=== PATIENT | female | born 1965 | race Caucasian/White ===

== ENCOUNTER 2017-11-07 19:32 | Emergency (ER) | payer OTHER ==
[~2017-11-07] VITALS: Ht 165.1 cm; Wt 88.5 kg
[~2017-11-07 19:32] MED LIST: ALBU90OI; ALBU90OI6 INH; ATEN50; ATOR40TA PO; CARB200ER; CARBATROL PO; CIPR500 PO; Cipro500 MG PO; DULO30 PO; FENO145 PO; FLUSAL1005 INH; FLUSAL2505; HYDACE5 PO; LORA1 PO; METR500 PO; MIRALAX17 GM PO; Norco 5-325 Ta1 EACH PO; ONDA4ODT MM; OXYACE5T PO; PROACE100 PO; Prinivil10 MG PO; RANI150 PO; RIZATRIPTAN5 M1 PO; SALS750 PO; SIMV20; WARF4 PO; WARF5 PO; WARF6; WARF7.5 PO; Zofran Odt4 MG SL
[2017-11-07] MEDS ORDERED: Keflex500 MG PO (21:22)
[2017-11-07] MEDS ORDERED: Bactrim Ds Tab1 EACH PO (21:22)
[2017-11-07] MEDS ORDERED: Norco 5-325 Ta1 EACH PO (21:22)
[2018-07-30] MEDS ORDERED: CYCL10 (11:51)
[2018-07-30] MEDS ORDERED: DICL25ER (11:52)
== END 2017-11-07 21:44 | disposition home or self-care (01) ==
LOC: ER 19:32
DX: L03.115 Cellulitis of right lower limb (principal); G40.909 Epilepsy, unspecified, not intractable, without status epilepticus; J45.909 Unspecified asthma, uncomplicated; E78.00 Pure hypercholesterolemia, unspecified; F32.9 Major depressive disorder, single episode, unspecified; F41.9 Anxiety disorder, unspecified; Z91.013 Allergy to seafood; Z88.6 Allergy status to analgesic agent; Z88.5 Allergy status to narcotic agent; Z88.8 Allergy status to other drugs, medicaments and biological substances; Z79.899 Other long term (current) drug therapy; Z90.710 Acquired absence of both cervix and uterus; Z87.891 Personal history of nicotine dependence
CPT/HCPCS: 99283

== ENCOUNTER 2017-11-24 06:39 | Emergency (ER) | payer OTHER ==
[~2017-11-24] VITALS: Ht 162.6 cm; Wt 86.2 kg
[~2017-11-24 06:39] MED LIST changes: +Bactrim Ds Tab1 EACH PO; +Keflex500 MG PO
[2017-11-24] MEDS ORDERED: Norco 5-325 Ta1 EACH PO (07:41)
[2017-11-24 07:48] LABS: Source, Urine Clean Catch
[2017-11-24 07:58] LABS: Bilirubin, Urine Neg (Neg); Blood, Urine 1+ (Neg); Glucose Qualitative, Urine Neg (Neg); Ketones, Urine Neg (Neg); Leukocyte Esterase, Urine 3+ (Neg); Nitrite, Urine Neg (Neg); Protein, Urine 1+ (Neg); Specific Gravity, Urine 1.025 (1.003-1.022); Urobilinogen, Urine NORM (Normal)
[2017-11-24 08:05] LABS: Appearance, Urine Clear (Clear); Color, Urine Yellow (P-Yellow)
[2017-11-24 08:13] LABS: Bacteria Many /hpf; Red Blood Cells, Urine 0-2 /hpf (0-2); Squamous Epithelial Cells Few /hpf (Few); White Blood Cells, Urine 25-50 /hpf (0-5)
[2018-07-30] MEDS ORDERED: CYCL10 (11:51)
[2018-07-30] MEDS ORDERED: DICL25ER (11:52)
== END 2017-11-24 07:58 | disposition home or self-care (01) ==
LOC: ER 06:39
PROVIDERS: Emergency Medicine
DX: N39.0 Urinary tract infection, site not specified (principal); J45.909 Unspecified asthma, uncomplicated; E78.00 Pure hypercholesterolemia, unspecified; G40.909 Epilepsy, unspecified, not intractable, without status epilepticus; F32.9 Major depressive disorder, single episode, unspecified; F41.9 Anxiety disorder, unspecified; Z91.013 Allergy to seafood; Z88.5 Allergy status to narcotic agent; Z88.6 Allergy status to analgesic agent; Z88.8 Allergy status to other drugs, medicaments and biological substances; Z79.899 Other long term (current) drug therapy; Z90.710 Acquired absence of both cervix and uterus; Z87.891 Personal history of nicotine dependence
CPT/HCPCS: 81001; 87086; 99283

== ENCOUNTER 2018-02-02 15:43 | Emergency (ER) | payer OTHER ==
[~2018-02-02] VITALS: Ht 162.6 cm; Wt 90.7 kg
[2018-02-02] MEDS ORDERED: CYCL10 PO (17:07)
== END 2018-02-02 17:17 | disposition home or self-care (01) ==
LOC: ER 15:43
DX: M25.512 Pain in left shoulder (principal); Z88.8 Allergy status to other drugs, medicaments and biological substances; Z88.5 Allergy status to narcotic agent; Z79.899 Other long term (current) drug therapy; I10 Essential (primary) hypertension; G40.909 Epilepsy, unspecified, not intractable, without status epilepticus; Z87.891 Personal history of nicotine dependence
CPT/HCPCS: 96372; 99283; J1885

== ENCOUNTER 2018-07-02 03:26 | Emergency (ER) | payer OTHER ==
[~2018-07-02] VITALS: Ht 162.6 cm; Wt 95.7 kg
[~2018-07-02 03:26] MED LIST changes: +CYCL10 PO
[2018-07-02] MEDS ORDERED: CBD OIL (05:13)
[2018-07-02] MEDS ORDERED: Stool Softener100 MG PO (05:13)
[2018-07-02] MEDS ORDERED: METPRE4 PO (05:13)
[2018-07-02] MEDS ORDERED: Percocet 10-321 EACH PO (07:44)
[2018-07-02] MEDS ORDERED: LIDO700A20 TOP (07:44)
== END 2018-07-02 07:55 | disposition home or self-care (01) ==
LOC: ER 03:26
DX: M54.5 Low back pain (principal); G89.29 Other chronic pain; I10 Essential (primary) hypertension; G43.909 Migraine, unspecified, not intractable, without status migrainosus; Z91.013 Allergy to seafood; Z88.6 Allergy status to analgesic agent; Z88.5 Allergy status to narcotic agent; Z88.8 Allergy status to other drugs, medicaments and biological substances; Z79.899 Other long term (current) drug therapy; Z87.891 Personal history of nicotine dependence
CPT/HCPCS: 72080; 99283-25; J1100

== ENCOUNTER → 2018-07-12 | Outpatient (CLI) | payer OTHER ==
[~2018-07-12] MED LIST changes: +ALBU90OI61 INH; +CBD OIL; +DICL25ER PO; +LIDO700A20 TOP; +METPRE4 PO; +Percocet 10-321 EACH PO; +Stool Softener100 MG PO
[2018-07-12 13:06] LABS: Source, Urine Clean Catch
[2018-07-12 14:27] LABS: Appearance, Urine Clear (Clear); Bilirubin, Urine Neg (Neg); Blood, Urine Neg (Neg); Color, Urine Yellow (P-Yellow); Glucose Qualitative, Urine Neg (Neg); Ketones, Urine Neg (Neg); Leukocyte Esterase, Urine 2+ (Neg); Nitrite, Urine Neg (Neg); Protein, Urine Neg (Neg); Urobilinogen, Urine NORM (Normal); pH, Urine 6.5 (5.0-8.0)
[2018-07-12 14:47] LABS: Bacteria Mod /hpf; Red Blood Cells, Urine 0-2 /hpf (0-2); Squamous Epithelial Cells Few /hpf (Few)
== END ==
LOC: LAB SHORT 13:02 → LAB 13:02
PROVIDERS: Family Medicine
DX: R35.0 Frequency of micturition (principal); M54.6 Pain in thoracic spine
CPT/HCPCS: 81001; 87086

== ENCOUNTER 2018-07-18 20:51 | Inpatient (IN) | payer OTHER ==
[~2018-07-18] VITALS: Ht 162.6 cm; Wt 98.0 kg
[~2018-07-18 20:51] MED LIST changes: -ALBU90OI61 INH; -DICL25ER PO
[2018-07-18 21:28] LABS: BASOPHILS ABSOLUTE AUTO 0.05 K/mm3 (0.00-0.23); BASOPHILS PERCENT AUTO 1 % (0-2); EOSINOPHILS ABSOLUTE AUTO 0.04 K/mm3 (0.00-0.68); EOSINOPHILS PERCENT AUTO 0 % (0-6); Hematocrit 41.7 % (33.0-51.0); Hemoglobin 13.8 g/dL (11.5-16.0); IMMATURE GRAN ABSOLUTE AUTO 0.04 K/mm3 (0.00-0.10); IMMATURE GRAN PERCENT AUTO 0 % (0-1); LYMPHOCYTES ABSOLUTE AUTO 1.45 K/mm3 (0.84-5.20); LYMPHOCYTES PERCENT AUTO 15 % (21-46); MONOCYTES ABSOLUTE AUTO 0.66 K/mm3 (0.16-1.47); MONOCYTES PERCENT AUTO 7 % (4-13); Mean Corpuscular HGB 29.9 pg (26.0-34.0); Mean Corpuscular HGB Conc 33.1 g/dL (31.5-36.5); Mean Corpuscular Volume 91 fL (80-100); Mean Platelet Volume 10.2 fL (9.1-12.4); NEUTROPHILS ABSOLUTE AUTO 7.79 K/mm3 (1.96-9.15); NEUTROPHILS PERCENT AUTO 78 % (41-73); Platelet Count 283 K/mm3 (150-400); RDW Coefficient Variation 13.7 % (11.7-14.2); RDW Standard Deviation 45.5 fL (35.1-46.3); Red Blood Cell Count 4.61 M/mm3 (3.80-5.20); White Blood Cell Count 10.03 K/mm3 (4.00-11.30)
[2018-07-18 21:41] LABS: Alanine Aminotransfer (ALT/SGP 35 U/L (12-78); Albumin, Blood 3.7 g/dL (3.4-5.0); Albumin/Globulin Ratio 0.9 (0.8-1.8); Alk Phos 133 U/L (50-136); Anion Gap 8 mmol/L (6-16); Aspartate Aminotrans (AST/SGOT 23 U/L (12-37); Bilirubin, Total 0.3 mg/dL (0.1-1.0); Blood Urea Nitrogen 15 mg/dL (8-24); Bun/Creatinine Ratio 18.3 (12.0-20.0); CO2, Blood 27 mmol/L (21-32); Calcium, Blood 8.6 mg/dL (8.5-10.1); Chloride, Blood 105 mmol/L (98-108); Creatinine, Blood 0.82 mg/dL (0.40-1.00); Globulin, Blood 4.3 g/dL (2.2-4.0); Glomerular Filtration Rate >60 (60-); Glucose, Blood 103 mg/dL (70-99); Potassium, Blood 4.1 mmol/L (3.5-5.5); Sodium, Blood 140 mmol/L (136-145)
[2018-07-19] MEDS ORDERED: ALBU90OI61 INH (00:27)
[2018-07-19] MEDS ORDERED: DICL25ER PO (00:28)
[2018-07-19 04:31] LABS: Hematocrit 38.9 % (33.0-51.0); Hemoglobin 12.6 g/dL (11.5-16.0); Mean Corpuscular HGB Conc 32.4 g/dL (31.5-36.5); Mean Corpuscular Volume 89 fL (80-100); Mean Platelet Volume 10.2 fL (9.1-12.4); Platelet Count 258 K/mm3 (150-400); RDW Coefficient Variation 13.7 % (11.7-14.2); RDW Standard Deviation 45.1 fL (35.1-46.3); Red Blood Cell Count 4.35 M/mm3 (3.80-5.20); White Blood Cell Count 11.52 K/mm3 (4.00-11.30)
[2018-07-19 04:55] LABS: Alanine Aminotransfer (ALT/SGP 31 U/L (12-78); Albumin, Blood 3.3 g/dL (3.4-5.0); Albumin/Globulin Ratio 0.9 (0.8-1.8); Alk Phos 108 U/L (50-136); Anion Gap 7 mmol/L (6-16); Aspartate Aminotrans (AST/SGOT 18 U/L (12-37); Bilirubin, Total 0.3 mg/dL (0.1-1.0); Blood Urea Nitrogen 12 mg/dL (8-24); Bun/Creatinine Ratio 15.7 (12.0-20.0); CO2, Blood 27 mmol/L (21-32); Calcium, Blood 8.1 mg/dL (8.5-10.1); Chloride, Blood 106 mmol/L (98-108); Creatinine, Blood 0.76 mg/dL (0.40-1.00); Globulin, Blood 3.7 g/dL (2.2-4.0); Glomerular Filtration Rate >60 (60-); Glucose, Blood 100 mg/dL (70-99); Potassium, Blood 4.2 mmol/L (3.5-5.5); Sodium, Blood 140 mmol/L (136-145)
[2018-07-19 13:21] LABS: Adenovirus F 40/41 Not Detected (NOT DETECT); Astrovirus Not Detected (NOT DETECT); Campylobacter Sp Not Detected (NOT DETECT); Cryptosporidium Not Detected (NOT DETECT); Cyclospora Cayetanensis Not Detected (NOT DETECT); E. Coli O157 Not Detected (NOT DETECT); Entamoeba Histolytica Not Detected (NOT DETECT); Enteroaggregative E. coli-EAEC Not Detected (NOT DETECT); Enteropathogenic E. coli-EPEC Not Detected (NOT DETECT); Enterotoxigenic E. coli-ETEC Not Detected (NOT DETECT); Giardia Lamblia Not Detected (NOT DETECT); Norovirus GI/GII Not Detected (NOT DETECT); Plesiomonas Shigelloides Not Detected (NOT DETECT); Rotavirus A Not Detected (NOT DETECT); Salmonella Sp Not Detected (NOT DETECT); Sapovirus Not Detected (NOT DETECT); Shiga Toxin-prod E. coli-STEC Not Detected (NOT DETECT); Shigella/Enteroin E. coli-EIEC Not Detected (NOT DETECT); Vibrio Cholerae Not Detected (NOT DETECT); Vibrio Sp Not Detected (NOT DETECT); Yersinia Enterocolitica Not Detected (NOT DETECT)
[2018-07-19 15:11] LABS: Source, Urine Clean Catch
[2018-07-19 15:18] LABS: Appearance, Urine Clear (Clear); Bilirubin, Urine Neg (Neg); Blood, Urine Neg (Neg); Color, Urine Yellow (P-Yellow); Glucose Qualitative, Urine Neg (Neg); Ketones, Urine Neg (Neg); Leukocyte Esterase, Urine Neg (Neg); Nitrite, Urine Neg (Neg); Protein, Urine Neg (Neg); Specific Gravity, Urine 1.015 (1.003-1.022); Urobilinogen, Urine NORM (Normal)
[2018-07-20 05:12] LABS: BASOPHILS ABSOLUTE AUTO 0.04 K/mm3 (0.00-0.23); BASOPHILS PERCENT AUTO 1 % (0-2); EOSINOPHILS ABSOLUTE AUTO 0.07 K/mm3 (0.00-0.68); EOSINOPHILS PERCENT AUTO 1 % (0-6); Hematocrit 36.4 % (33.0-51.0); IMMATURE GRAN ABSOLUTE AUTO 0.01 K/mm3 (0.00-0.10); IMMATURE GRAN PERCENT AUTO 0 % (0-1); LYMPHOCYTES ABSOLUTE AUTO 2.06 K/mm3 (0.84-5.20); LYMPHOCYTES PERCENT AUTO 26 % (21-46); MONOCYTES ABSOLUTE AUTO 0.63 K/mm3 (0.16-1.47); MONOCYTES PERCENT AUTO 8 % (4-13); Mean Corpuscular HGB 29.9 pg (26.0-34.0); Mean Corpuscular Volume 91 fL (80-100); NEUTROPHILS ABSOLUTE AUTO 5.12 K/mm3 (1.96-9.15); NEUTROPHILS PERCENT AUTO 65 % (41-73); Platelet Count 245 K/mm3 (150-400); RDW Coefficient Variation 13.7 % (11.7-14.2); RDW Standard Deviation 46.5 fL (35.1-46.3); Red Blood Cell Count 4.01 M/mm3 (3.80-5.20); White Blood Cell Count 7.93 K/mm3 (4.00-11.30)
[2018-07-20 05:37] LABS: Anion Gap 8 mmol/L (6-16); Blood Urea Nitrogen 11 mg/dL (8-24); Bun/Creatinine Ratio 13.8 (12.0-20.0); CO2, Blood 28 mmol/L (21-32); Calcium, Blood 8.2 mg/dL (8.5-10.1); Chloride, Blood 107 mmol/L (98-108); Glomerular Filtration Rate >60 (60-); Glucose, Blood 98 mg/dL (70-99); Potassium, Blood 3.6 mmol/L (3.5-5.5); Sodium, Blood 143 mmol/L (136-145)
[2018-07-21 05:49] LABS: BASOPHILS ABSOLUTE AUTO 0.07 K/mm3 (0.00-0.23); BASOPHILS PERCENT AUTO 1 % (0-2); EOSINOPHILS ABSOLUTE AUTO 0.16 K/mm3 (0.00-0.68); EOSINOPHILS PERCENT AUTO 2 % (0-6); Hematocrit 37.3 % (33.0-51.0); Hemoglobin 12.2 g/dL (11.5-16.0); IMMATURE GRAN ABSOLUTE AUTO 0.02 K/mm3 (0.00-0.10); IMMATURE GRAN PERCENT AUTO 0 % (0-1); LYMPHOCYTES ABSOLUTE AUTO 2.41 K/mm3 (0.84-5.20); LYMPHOCYTES PERCENT AUTO 31 % (21-46); MONOCYTES ABSOLUTE AUTO 0.77 K/mm3 (0.16-1.47); MONOCYTES PERCENT AUTO 10 % (4-13); Mean Corpuscular HGB 29.3 pg (26.0-34.0); Mean Corpuscular HGB Conc 32.7 g/dL (31.5-36.5); Mean Corpuscular Volume 90 fL (80-100); Mean Platelet Volume 10.6 fL (9.1-12.4); NEUTROPHILS ABSOLUTE AUTO 4.45 K/mm3 (1.96-9.15); NEUTROPHILS PERCENT AUTO 56 % (41-73); Platelet Count 239 K/mm3 (150-400); RDW Coefficient Variation 13.6 % (11.7-14.2); RDW Standard Deviation 44.9 fL (35.1-46.3); Red Blood Cell Count 4.16 M/mm3 (3.80-5.20); White Blood Cell Count 7.88 K/mm3 (4.00-11.30)
[2018-07-22 04:11] LABS: BASOPHILS ABSOLUTE AUTO 0.06 K/mm3 (0.00-0.23); BASOPHILS PERCENT AUTO 1 % (0-2); EOSINOPHILS ABSOLUTE AUTO 0.13 K/mm3 (0.00-0.68); EOSINOPHILS PERCENT AUTO 2 % (0-6); Hematocrit 38.9 % (33.0-51.0); Hemoglobin 12.7 g/dL (11.5-16.0); IMMATURE GRAN ABSOLUTE AUTO 0.01 K/mm3 (0.00-0.10); IMMATURE GRAN PERCENT AUTO 0 % (0-1); LYMPHOCYTES ABSOLUTE AUTO 2.32 K/mm3 (0.84-5.20); LYMPHOCYTES PERCENT AUTO 36 % (21-46); MONOCYTES ABSOLUTE AUTO 0.56 K/mm3 (0.16-1.47); MONOCYTES PERCENT AUTO 9 % (4-13); Mean Corpuscular HGB 29.2 pg (26.0-34.0); Mean Corpuscular HGB Conc 32.6 g/dL (31.5-36.5); Mean Corpuscular Volume 89 fL (80-100); Mean Platelet Volume 10.5 fL (9.1-12.4); NEUTROPHILS ABSOLUTE AUTO 3.42 K/mm3 (1.96-9.15); NEUTROPHILS PERCENT AUTO 53 % (41-73); Platelet Count 242 K/mm3 (150-400); RDW Coefficient Variation 13.6 % (11.7-14.2); RDW Standard Deviation 44.6 fL (35.1-46.3); Red Blood Cell Count 4.35 M/mm3 (3.80-5.20)
[2018-07-23] MEDS ORDERED: ACET325 PO (11:06)
[2018-07-23] MEDS ORDERED: CIPR500 PO (11:07)
[2018-07-23] MEDS ORDERED: GAVILAX17 GM PO (11:07)
[2018-07-23] MEDS ORDERED: Acidophilus1 EAC2 PO (11:09)
[2018-07-23] MEDS ORDERED: HYDR1TAB94 PO (11:09)
[2018-07-23] MEDS ORDERED: METR500 PO (11:10)
== END 2018-07-23 13:15 | disposition home or self-care (01) | DRG 386 ==
LOC: ER 20:51 → MEDS 20:52 → ENPENDDIS 07-23 09:47 → MEDS 07-23 13:15
PROVIDERS: Emergency Medicine; Internal Medicine; Internal Medicine Gastroenterology
PROC: 0DBE8ZX Excision of Large Intestine, Via Natural or Artificial Opening Endoscopic, Diagnostic (ICD-10-PCS; principal; 2018-07-20 09:00)
DX: K51.50 Left sided colitis without complications (principal); K55.9 Vascular disorder of intestine, unspecified; Z68.36 Body mass index [BMI] 36.0-36.9, adult; E66.9 Obesity, unspecified; M79.7 Fibromyalgia; Z90.49 Acquired absence of other specified parts of digestive tract; K64.8 Other hemorrhoids; E78.5 Hyperlipidemia, unspecified
CPT/HCPCS: 36415; 74176; 80048; 80053; 81003; 82272; 83690; 85025; 85027; 87507; 88305; 94640; 94760; 96361; 96365; 96375; 99285-25; J0744; J0780; J1170; J2405; J3010; J7030; J7120

== ENCOUNTER 2018-11-16 22:41 | Emergency (ER) | payer OTHER ==
[~2018-11-16] VITALS: Ht 162.6 cm; Wt 95.7 kg
[~2018-11-16 22:41] MED LIST changes: +ACET325 PO; +ALBU90OI61 INH; +Acidophilus1 EAC2 PO; +CYCL10; +DICL25ER; +DICL25ER PO; +GAVILAX17 GM PO; +HYDR1TAB94 PO; -RANI150 PO; +Zantac150 MG PO
[2018-11-16] MEDS ORDERED: RIZATRIPTAN5 MG PO (23:09)
[2018-11-16] MEDS ORDERED: DULOXETINE HCL40 MG PO (23:09)
[2018-11-16] MEDS ORDERED: Cyclobenzaprine5 MG PO (23:12)
[2018-11-16] MEDS ORDERED: PROM25 PO (23:12)
[2018-11-16] MEDS ORDERED: AMIT25 PO (23:13)
[2018-11-16] MEDS ORDERED: BENZ100A PO (23:30)
[2018-11-16] MEDS ORDERED: Prednisone20 MG PO (23:30)
[2018-12-28] MEDS ORDERED: (None)20 M1 PO (18:12)
== END 2018-11-16 23:41 | disposition home or self-care (01) ==
LOC: ER 22:41
DX: R06.2 Wheezing (principal); M79.10 Myalgia, unspecified site; Z88.5 Allergy status to narcotic agent; Z88.8 Allergy status to other drugs, medicaments and biological substances; Z79.899 Other long term (current) drug therapy; I10 Essential (primary) hypertension; G40.909 Epilepsy, unspecified, not intractable, without status epilepticus; Z87.891 Personal history of nicotine dependence
CPT/HCPCS: 71046; 94640; 99283-25

== ENCOUNTER → 2019-09-04 | Outpatient (CLI) | payer OTHER ==
[~2019-09-04] MED LIST changes: +(None)20 M1 PO; +AMIT25 PO; +BENZ100A PO; +Cyclobenzaprine5 MG PO; +DULOXETINE HCL40 MG PO; +PROM25 PO; +Prednisone20 MG PO; +RIZATRIPTAN5 MG PO
== END | disposition home or self-care (01) ==
LOC: LAB EV 12:25 → LAB SHORT 12:25
DX: N39.0 Urinary tract infection, site not specified (principal)
CPT/HCPCS: 87086

== ENCOUNTER 2019-09-18 11:32 | Day surgery (SDC) | payer OTHER ==
[~2019-09-18] VITALS: Ht 162.6 cm; Wt 100.5 kg
[~2019-09-18 11:32] MED LIST changes: +AMIT50 PO; +LOSA50 PO
--- NOTE | 2019-09-18 13:02 | NUR ---
09/18/19 1302 Alona Iraheta 1 IV MISS IN RH BY YAMINI 1 IV MISS IN RW BY YAMINI 1 GOOD IV IN RFA BY RN PT TOW
== END 2019-09-18 14:36 | disposition home or self-care (01) ==
LOC: ORSCSDS 11:32
PROVIDERS: Internal Medicine Gastroenterology
PROC: 0DBM8ZX Excision of Descending Colon, Via Natural or Artificial Opening Endoscopic, Diagnostic (ICD-10-PCS; principal; 2019-09-18 12:45)
PROC: 0DJ08ZZ Inspection of Upper Intestinal Tract, Via Natural or Artificial Opening Endoscopic (ICD-10-PCS; principal; 2019-09-18 12:45)
PROC: 0DBL8ZX Excision of Transverse Colon, Via Natural or Artificial Opening Endoscopic, Diagnostic (ICD-10-PCS; principal; 2019-09-18 12:45)
DX: K62.5 Hemorrhage of anus and rectum (principal); D12.3 Benign neoplasm of transverse colon; K63.5 Polyp of colon; K64.8 Other hemorrhoids; R10.32 Left lower quadrant pain; R12 Heartburn; F17.210 Nicotine dependence, cigarettes, uncomplicated; Z86.010 Personal history of colon polyps; G47.33 Obstructive sleep apnea (adult) (pediatric); M79.7 Fibromyalgia; L93.0 Discoid lupus erythematosus; F31.81 Bipolar II disorder; F43.12 Post-traumatic stress disorder, chronic; Z79.899 Other long term (current) drug therapy
CPT/HCPCS: 88305; J2250; J2704; J7120

== ENCOUNTER 2020-04-23 09:18 | Day surgery (SDC) | payer OTHER ==
[~2020-04-23] VITALS: Ht 165.1 cm; Wt 96.9 kg
--- NOTE | 2020-04-23 10:30 | NUR ---
04/23/20 1030 ValentinLili Evens WHEN ASKED PT IF SHE HAD ANY PAIN, PT. STATED "NORMAL PAIN." PER PT. SHE HAS LUPUS & FIBROMYALGIA RATES HER PAIN "4-5". PT. ALSO VERBALIZED THAT SHE FELT SOB, STATES "THROAT FEELS TIGHT." PT. HAS ASTHMA/COPD. PT. DIDN'T USE HER INHALER TODAY. DR. FERNANDO NOTIFIED OF THROAT FEELING TIGHT & ASTHMA/COPD, ORDER GIVEN FOR DUO NEB. PT. VERBALIZES DUO NEB IS HELPING HER THROAT NOT FEEL SO TIGHT.
--- NOTE | 2020-04-23 11:41 | NUR ---
04/23/20 1141 Lili Hanson PT. VERBALIZES NO PAIN OR SORE THROAT FROM THE PROCEDURE. PT. JUST HAS HER "NORMAL PAIN" THAT SHE CAME IN WITH.
== END 2020-04-23 11:54 | disposition home or self-care (01) ==
LOC: ORSCSDS 09:18
PROVIDERS: Internal Medicine Gastroenterology
PROC: 0DJ08ZZ Inspection of Upper Intestinal Tract, Via Natural or Artificial Opening Endoscopic (ICD-10-PCS; principal; 2020-04-23 11:00)
DX: K22.8 Other specified diseases of esophagus (principal); I10 Essential (primary) hypertension; G47.33 Obstructive sleep apnea (adult) (pediatric); K21.9 Gastro-esophageal reflux disease without esophagitis; J45.909 Unspecified asthma, uncomplicated; F31.9 Bipolar disorder, unspecified; Z87.891 Personal history of nicotine dependence; E66.01 Morbid (severe) obesity due to excess calories; Z68.37 Body mass index [BMI] 37.0-37.9, adult; Z79.899 Other long term (current) drug therapy
CPT/HCPCS: J2001; J2250; J2704; J7120

== ENCOUNTER → 2021-10-11 | Outpatient (CLI) | payer OTHER ==
[2021-10-12 15:30] LABS: CORONAVIRUS (COVID19) CSH-NRL Positive (Negative)
== END | disposition home or self-care (01) ==
LOC: LAB 10:36 → LAB SHORT 10:36
PROVIDERS: Physician Assistant Medical
DX: U07.1 COVID-19 (principal)
CPT/HCPCS: U0003

== ENCOUNTER → 2022-03-22 | Outpatient (CLI) | payer OTHER ==
[2022-03-22 15:05] LABS: BASOPHILS ABSOLUTE AUTO 0.05 K/mm3 (0.00-0.23); BASOPHILS PERCENT AUTO 1 % (0-2); EOSINOPHILS ABSOLUTE AUTO 0.07 K/mm3 (0.00-0.68); EOSINOPHILS PERCENT AUTO 1 % (0-6); Hematocrit 44.4 % (33.0-51.0); Hemoglobin 14.7 g/dL (11.5-16.0); IMMATURE GRAN ABSOLUTE AUTO 0.01 K/mm3 (0.00-0.10); IMMATURE GRAN PERCENT AUTO 0 % (0-1); LYMPHOCYTES ABSOLUTE AUTO 2.73 K/mm3 (0.84-5.20); LYMPHOCYTES PERCENT AUTO 38 % (21-46); MONOCYTES ABSOLUTE AUTO 0.49 K/mm3 (0.16-1.47); MONOCYTES PERCENT AUTO 7 % (4-13); Mean Corpuscular HGB 29.6 pg (26.0-34.0); Mean Corpuscular HGB Conc 33.1 g/dL (31.5-36.5); Mean Corpuscular Volume 90 fL (80-100); Mean Platelet Volume 10.3 fL (9.1-12.4); NEUTROPHILS ABSOLUTE AUTO 3.87 K/mm3 (1.96-9.15); NEUTROPHILS PERCENT AUTO 54 % (41-73); Platelet Count 264 K/mm3 (150-400); RDW Standard Deviation 45.1 fL (35.1-46.3); Red Blood Cell Count 4.96 M/mm3 (3.80-5.20); White Blood Cell Count 7.22 K/mm3 (4.00-11.30)
[2022-03-22 15:20] LABS: Bun/Creatinine Ratio 14.6 (12.0-20.0); Calcium, Blood 8.8 mg/dL (8.5-10.1); Creatinine, Blood 0.89 mg/dL (0.40-1.00); Potassium, Blood 4.2 mmol/L (3.5-5.5)
== END | disposition home or self-care (01) ==
LOC: LAB SHORT 14:58 → LAB 14:58
PROVIDERS: Physician Assistant Surgical
DX: R10.9 Unspecified abdominal pain (principal)
CPT/HCPCS: 80048; 85025

== ENCOUNTER 2022-11-05 06:52 | Emergency (ER) | payer OTHER ==
[~2022-11-05] VITALS: Ht 165.1 cm; Wt 93.0 kg
[~2022-11-05 06:52] MED LIST changes: +HYDHCL25 PO; +Hydrocortiso453.6 G3 TOP; +MENTHOL-CAMPHO120 GM TOP
[2022-11-05] MEDS ORDERED: CODEINE-GUAIFE120 M1 PO (08:15)
[2022-11-05] MEDS ORDERED: Tessalon200 MG PO (08:15)
== END 2022-11-05 09:04 | disposition home or self-care (01) ==
LOC: ER 06:52
DX: R05.1 Acute cough (principal); I10 Essential (primary) hypertension; M79.7 Fibromyalgia; G40.909 Epilepsy, unspecified, not intractable, without status epilepticus; Z91.013 Allergy to seafood; Z88.6 Allergy status to analgesic agent; Z88.5 Allergy status to narcotic agent; Z88.8 Allergy status to other drugs, medicaments and biological substances; Z79.899 Other long term (current) drug therapy; Z87.891 Personal history of nicotine dependence
CPT/HCPCS: 71046; A9270

== ENCOUNTER 2022-12-06 10:21 | Day surgery (SDC) | payer OTHER ==
[~2022-12-06] VITALS: Ht 165.1 cm; Wt 93.6 kg
[~2022-12-06 10:21] MED LIST changes: +CODEINE-GUAIFE120 M1 PO; +Tessalon200 MG PO
[2022-12-06] MEDS ORDERED: ATEN25 (10:47)
[2022-12-06] MEDS ORDERED: FAMO20 (10:47)
[2022-12-06] MEDS ORDERED: RIZATRIPTAN10 MG (10:47)
[2022-12-06] MEDS ORDERED: Cyclobenzaprine5 MG (10:47)
--- NOTE | 2022-12-06 13:11 | NUR ---
12/06/22 1311 HORACE HUERTA KEPT PT IN RECOVERY ADDITIONAL TIME DUE TO BEING SLOW TO RECOVER. PT HAD MAC SEDATION INCLUDING PROPOFOL, KETAMINE AND SRIRAM AGUILAR/ DR WHITLOCK. DAUGHTER IS A NURSE AT THE [employer] AND WILL BE WITH PATIENT FOR A FEW HOURS AT HOME. PT WILL HAVE STAND BY ASSIST WHEN UP FOR THE FIRST 3-4 HOURS AT HOME. PT AND DAUGHTER AGREED.
== END 2022-12-06 13:12 | disposition home or self-care (01) ==
LOC: ORSCSDS 10:21
PROVIDERS: Internal Medicine Gastroenterology
PROC: 0DBP8ZX Excision of Rectum, Via Natural or Artificial Opening Endoscopic, Diagnostic (ICD-10-PCS; principal; 2022-12-06 11:45)
PROC: 0D757ZZ Dilation of Esophagus, Via Natural or Artificial Opening (ICD-10-PCS; principal; 2022-12-06 11:45)
PROC: 0DBN8ZX Excision of Sigmoid Colon, Via Natural or Artificial Opening Endoscopic, Diagnostic (ICD-10-PCS; principal; 2022-12-06 11:45)
PROC: 0DJ08ZZ Inspection of Upper Intestinal Tract, Via Natural or Artificial Opening Endoscopic (ICD-10-PCS; principal; 2022-12-06 11:45)
DX: Z12.11 Encounter for screening for malignant neoplasm of colon (principal); Z85.038 Personal history of other malignant neoplasm of large intestine; Z86.010 Personal history of colon polyps; R13.10 Dysphagia, unspecified; K63.5 Polyp of colon; K62.1 Rectal polyp; F17.210 Nicotine dependence, cigarettes, uncomplicated; G47.33 Obstructive sleep apnea (adult) (pediatric); E78.5 Hyperlipidemia, unspecified; K21.9 Gastro-esophageal reflux disease without esophagitis; G40.909 Epilepsy, unspecified, not intractable, without status epilepticus; Z79.899 Other long term (current) drug therapy
CPT/HCPCS: 88305; A9270; J2250; J2704; J7120

== ENCOUNTER → 2023-07-13 | Outpatient (CLI) | payer OTHER ==
[~2023-07-13] MED LIST changes: +ATEN25; +Cyclobenzaprine5 MG; +FAMO20; +RIZATRIPTAN10 MG
[2023-07-14 12:09] LABS: Candida species (DNA Probe) Negative (NEGATIVE); G. vaginalis (DNA Probe) Positive (NEGATIVE); T. vaginalis (DNA Probe) Negative (NEGATIVE)
[2023-07-16 05:09] LABS: HIV AB/P24 AG SCREEN Non Reactive (Non Reactive)
[2023-07-17 11:12] LABS: HSV-1 DNA Negative (Negative); HSV-2 DNA Negative (Negative)
== END ==
LOC: LAB 12:46 → LAB SHORT 12:46
PROVIDERS: Student in an Organized Health Care Education/Training Program
DX: Z11.4 Encounter for screening for human immunodeficiency virus [HIV] (principal); R30.0 Dysuria; Z72.51 High risk heterosexual behavior
CPT/HCPCS: 86592; 87086; 87389; 87480; 87510; 87529; 87660

== ENCOUNTER → 2023-11-15 | Outpatient (CLI) | payer OTHER | END | disposition home or self-care (01) | LOC: LAB SHORT 13:49 → LAB 13:49 | DX: L60.2 Onychogryphosis (principal); B35.1 Tinea unguium | CPT/HCPCS: 88305; 88312 ==

== ENCOUNTER → 2024-04-25 | Outpatient (CLI) | payer OTHER ==
[~2024-04-25] MED LIST changes: +CATAPRES0.1 MG PO; +TENORETIC 1001 EACH PO; +TIZA4 PO
== END | disposition home or self-care (01) ==
LOC: LAB SHORT 16:54 → LAB 16:54
DX: R35.0 Frequency of micturition (principal)
CPT/HCPCS: 87077; 87086; 87186

== ENCOUNTER → 2025-02-19 | Outpatient (CLI) | payer OTHER ==
[2025-02-19 11:32] LABS: Source, Urine Clean Catch
[2025-02-19 11:33] LABS: Appearance, Urine Hazy (Clear); Bilirubin, Urine Neg (Neg); Blood, Urine Neg (Neg); Color, Urine Amber (P-Yellow); Glucose Qualitative, Urine Neg (Normal); Ketones, Urine Neg (Neg); Leukocyte Esterase, Urine Neg (Neg); Nitrite, Urine Neg (Neg); Protein, Urine Neg (Neg); Urobilinogen, Urine NORM (Normal)
[2025-02-19 11:35] LABS: White Blood Cells, Urine Not Seen /hpf (0-5)
[2025-02-19 11:36] LABS: Bacteria Not Seen /hpf; Red Blood Cells, Urine 0-2 /hpf (0-2); Squamous Epithelial Cells Few /hpf (Few)
== END ==
LOC: LAB SHORT 11:28 → LAB 11:28
PROVIDERS: Family Medicine
DX: R10.9 Unspecified abdominal pain (principal)
CPT/HCPCS: 81001

== ENCOUNTER 2025-02-26 10:00 | Observation (INO) | payer OTHER ==
[~2025-02-26] VITALS: Ht 167.6 cm; Wt 87.0 kg
[~2025-02-26 10:00] MED LIST changes: -ATOR40TA PO; -FAMO20; +FAMO20 PO; +LIPITOR80 MG PO
[2025-02-26] MEDS ORDERED: Prochlorperazine Edisylate 10 mg Vial IV ONE (10:25)
[2025-02-26] MEDS ORDERED: DiphenhydrAMINE HCl 50 MG/ML 1ML Vial IV ONE (10:25)
[2025-02-26] MEDS ORDERED: NS 1,000 ML IV SCH ×2 (10:30→12:40)
[2025-02-26 10:35] LABS: Calcium, Ionized (POC) 1.15 mmol/L (1.10-1.46); Chloride (POC) 103 mmol/L (98-108); Creatinine (POC) 0.7 mg/dL (0.6-1.0); Glucose (ISTAT POC) 80 mg/dL (70-99); Potassium (POC) 4.2 mmol/L (3.5-5.5); Sodium (POC) 135 mmol/L (135-148); Total CO2 (POC) 25 mmol/L (21-32)
[2025-02-26 10:52] LABS: BASOPHILS ABSOLUTE AUTO 0.08 K/mm3 (0.00-0.23); BASOPHILS PERCENT AUTO 1 % (0-2); EOSINOPHILS ABSOLUTE AUTO 0.02 K/mm3 (0.00-0.68); EOSINOPHILS PERCENT AUTO 0 % (0-6); Hematocrit 47.2 % (33.0-51.0); Hemoglobin 16.4 g/dL (11.5-16.0); IMMATURE GRAN ABSOLUTE AUTO 0.05 K/mm3 (0.00-0.10); IMMATURE GRAN PERCENT AUTO 1 % (0-1); LYMPHOCYTES ABSOLUTE AUTO 2.39 K/mm3 (0.84-5.20); LYMPHOCYTES PERCENT AUTO 30 % (21-46); MONOCYTES ABSOLUTE AUTO 0.68 K/mm3 (0.16-1.47); MONOCYTES PERCENT AUTO 8 % (4-13); Mean Corpuscular HGB 30.1 pg (26.0-34.0); Mean Corpuscular HGB Conc 34.7 g/dL (31.5-36.5); Mean Corpuscular Volume 87 fL (80-100); NEUTROPHILS ABSOLUTE AUTO 4.88 K/mm3 (1.96-9.15); NEUTROPHILS PERCENT AUTO 60 % (41-73); RDW Coefficient Variation 15.1 % (11.7-14.2); RDW Standard Deviation 47.9 fL (35.1-46.3); Red Blood Cell Count 5.44 M/mm3 (3.80-5.20)
[2025-02-26 10:57] LABS: Albumin, Blood 4.1 g/dL (3.4-5.0); Bilirubin, Total 0.5 mg/dL (0.1-1.0); Bun/Creatinine Ratio 20.6 (12.0-20.0); Calcium, Blood 9.1 mg/dL (8.5-10.1); Creatinine, Blood 0.63 mg/dL (0.40-1.00); Potassium, Blood 4.1 mmol/L (3.5-5.5); Total Protein, Blood 8.1 g/dL (6.4-8.2)
[2025-02-26 11:04] LABS: Mean Platelet Volume 9.9 fL (9.1-12.4); Platelet Count 271 K/mm3 (150-400)
[2025-02-26] MEDS ORDERED: Carvedilol3.125 MG PO (11:35)
[2025-02-26] MEDS ORDERED: HydrALAZINE HCl 20 MG / ML 1ML Vial IV ONE (12:10)
[2025-02-26] MEDS ORDERED: Bisacodyl 10 MG Supp PR PRN (12:40)
[2025-02-26] MEDS ORDERED: Magnesium Hydroxide Conc 10 ML UDC PO PRN (12:40)
[2025-02-26] MEDS ORDERED: Ondansetron 4 MG TAB PO PRN (12:40)
[2025-02-26] MEDS ORDERED: TraZODone HCl 50 MG Tab PO PRN (12:40)
[2025-02-26] MEDS ORDERED: Albuterol 2.5 MG/3 ML VIAL INH PRN (12:45)
[2025-02-26] MEDS ORDERED: Rizatriptan Benzoate 10 MG / TAB SoluTab SL PRN (12:50)
[2025-02-26] MEDS ORDERED: CloNIDine HCl 0.2 MG Tab PO SCH (14:00)
[2025-02-26 15:26] VITALS: BP 161/91
--- NOTE | 2025-02-26 19:19 | NUR ---
CVA-ON-XHBMF REPORT A&Ox4. PLEASANT AND COOPERATIVE WITH CARE. CALLS APPROPRIATELY AND IS ABLE TO ADVOCATE NEEDS EFFECTIVELY. AMBULATES c SBA D/T STROKE Sx. CONTINENT OF BOWEL AND BLADDER; LBM 02/26/25. MEDS WHOLE c FLUIDS. TELE SINUS LUPIS. NO C/O PAIN OR DISCOMFORT. MRI ORDERED; UNABLE TO BE DONE D/T MACHINE DOWN. AWAITING MRI SCREENING FORM. MULTIPLE FAMILY MEMBERS IN TO VISIT. BED IN LOWEST POSITION. CALL LIGHT WITHIN REACH. REPORT TO ONCOMING NURSE.
[2025-02-26 19:56] VITALS: BP 166/79
[2025-02-26] MEDS ORDERED: Lactobacil 2-S.Thermo-Bifido 1 1 Cap PO SCH (21:00)
[2025-02-26] MEDS ORDERED: CarBAMazepine 200 MG Tab PO SCH (21:00)
[2025-02-26] MEDS ORDERED: DULoxetine HCL 60 MG Capsule DR PO SCH (21:00)
[2025-02-26] MEDS ORDERED: Atorvastatin 40 MG Tab PO SCH (21:00)
[2025-02-26] MEDS ORDERED: Losartan Potassium 50 MG Tab PO SCH (21:00)
[2025-02-26] MEDS ORDERED: Famotidine 20 MG Tab PO SCH (21:00)
[2025-02-27] VITALS: BP 179/89
[2025-02-27 03:43] VITALS: BP 155/73
[2025-02-27 05:47] LABS: Hematocrit 41.7 % (33.0-51.0); Hemoglobin 14.5 g/dL (11.5-16.0)
--- NOTE | 2025-02-27 06:22 | NUR ---
SHIFT SUMMARY PT SLEPT INTERMITTENTLY DURING THE NIGHT. PT'S VISION WAS BLURRY AND "DARK" WITH SLUGGISH PUPILS, STATES SOME IMPROVEMENT IN VISION THIS AM. MRI CHECKLIST COMPLETE AND FAXED TO MRI DEPARTMENT. PT OOB WITH STANDBY ASSIST FOR SAFETY. BED IN LOWEST POSITION, CALL LIGHT WITHIN REACH, SIDERAILS UP X2.
[2025-02-27 06:25] LABS: Anion Gap 11 mmol/L (3-11); Blood Urea Nitrogen 11 mg/dL (8-24); Bun/Creatinine Ratio 16.8 (12.0-20.0); CHOL/HDL RATIO 3.6; CO2, Blood 23 mmol/L (21-32); Calcium, Blood 8.9 mg/dL (8.5-10.1); Chloride, Blood 106 mmol/L (98-108); Cholesterol 206 mg/dL (50-200); Creatinine, Blood 0.65 mg/dL (0.40-1.00); Glomerular Filtration Rate 101 (60-); Glucose, Blood 96 mg/dL (70-99); HDL Cholesterol 57 mg/dL (>39); LDL/HDL RATIO 2.2; Low Density Lipoprotein Chol 127 mg/dL (0-110); Potassium, Blood 3.8 mmol/L (3.5-5.5); Sodium, Blood 136 mmol/L (136-145); Triglycerides 111 mg/dL (30-160); Very Low Density Lipoprot Chol 22 mg/dL (6-32)
[2025-02-27 07:26] VITALS: BP 148/84
--- NOTE | 2025-02-27 07:34 | NUR ---
ASSUMPTION OF CARE: ASSUMED CARE OF PATIENT. AWAKE DURING SHIFT CHANGE REPORT; SITTING UP IN BED, VISITING WITH DAUGHTER, LAKE, WHO LEFT SHORTLY AFTERWARDS FOR WORK AT THE [employer]. LAKE'S WORK PHONE NUMBER IS ON THE WHITEBOARD IN CASE OF AN EMERGENCY. OTHER DAUGHTER, LETITIA, WILL BE IN LATER TODAY. TELE SINUS ARRHYTHMIA @ 63bpm, CHANGED FROM SINUS LUPIS YESTERDAY AT ADMIT AND NORMAL SINUS @ SHIFT CHANGE LAST NIGHT. BED IN LOWEST POSITION. CALL LIGHT WITHIN REACH. NO ACUTE NEEDS. PT TO ROOM FOR PT.
[2025-02-27] MEDS ORDERED: Enoxaparin 40 MG/0.4 ML SYR SC SCH (09:00)
[2025-02-27] MEDS ORDERED: Atenolol 50 MG Tab PO SCH (09:00)
[2025-02-27] MEDS ORDERED: Atorvastatin 40 MG Tab PO SCH (09:00)
[2025-02-27] MEDS ORDERED: Nicotine 21 MG PATCH TOP SCH (09:00)
[2025-02-27] MEDS ORDERED: DULoxetine HCL 60 MG Capsule DR PO SCH (09:00)
[2025-02-27] MEDS ORDERED: Losartan Potassium 50 MG Tab PO SCH (09:00)
--- NOTE | 2025-02-27 09:49 | NUR ---
CALL FROM [facility] AT 0900 STATING PATIENT WAS IN [facility]. UPON PATIENT ASSESSMENT, SHE WAS LYING ON HER LEFT SIDE, SLEEPING, AUDIBLY SNORING. AWOKE AND WHEN ASKED, REPLIED THAT SHE DOES HAVE SLEEP APNEA AND HAS BEEN Rxd A CPAP BUT WILL NOT USE IT HER FROM COMPLICATIONS WITH A RECALLED CPAP MACHINE.
[2025-02-27 11:23] VITALS: BP 163/97
[2025-02-27] MEDS ORDERED: CATAPRES0.2 M1 PO (14:00)
[2025-02-27] MEDS ORDERED: NICO21TP TOP (14:01)
--- NOTE | 2025-02-27 18:35 | NUR ---
DISCHARGE SUMMARY: A&Ox4. PLEASANT AND COOPERATIVE WITH CARE. CALLS APPROPRIATELY AND IS ABLE TO ADVOCATE NEEDS EFFECTIVELY. AMBULATES INDEPENDENTLY. CONTINENT OF BOWEL AND BLADDER; LBM TODAY. MEDS WHOLE c FLUIDS. TELE SINUS ARRHYTHMIA. NO C/O PAIN OR DISCOMFORT ASIDE FROM "ACHING" IN LEFT SIDE OF NECK/VEIN. SEEN AND DISCHARGED BY/FROM PT/OT SERVICES DUE TO INDEPENDENCE. MRI HEAD AND NECK COMPLETED AND WNL. IV INFILATRATED AND WAS REMOVED. MEDICATIONS FAXED TO [facility]. INSTRUCTED TO FOLLOW-UP WITH PCP. LEFT FLOOR WITH ALL BELONGINGS AND DISCHARGE PACKET, ESCORTED BY DAUGHTER, LETITIA, PROVIDING TRANSPORTATION.
== END 2025-02-27 14:30 | disposition home health service (06) ==
LOC: ER 10:00 → MEDS 10:01 → ER 12:35 → MEDS 12:35
PROVIDERS: Emergency Medicine; ADMIT Hospitalist
DX: G45.9 Transient cerebral ischemic attack, unspecified (principal); I16.0 Hypertensive urgency; I10 Essential (primary) hypertension; G40.909 Epilepsy, unspecified, not intractable, without status epilepticus; M79.7 Fibromyalgia; Z88.8 Allergy status to other drugs, medicaments and biological substances; Z88.5 Allergy status to narcotic agent; Z91.013 Allergy to seafood; Z79.899 Other long term (current) drug therapy; Z87.891 Personal history of nicotine dependence; Z85.038 Personal history of other malignant neoplasm of large intestine
CPT/HCPCS: 36415; 70450; 70544; 70549; 80047; 80048; 80053; 80061; 83735; 84484; 85014; 85018; 85025; 93005; 93010; 96374; 96375; 97116; 97161; 97165; 97530; 99285-25; A9270; A9579; G0378; J0360; J0780; J1200; J1650; J7030

== ENCOUNTER 2025-03-06 20:17 | Emergency (ER) | payer OTHER ==
[~2025-03-06] VITALS: Ht 165.1 cm; Wt 84.4 kg
[~2025-03-06 20:17] MED LIST changes: +CATAPRES0.2 M1 PO; +Carvedilol3.125 MG PO; +NICO21TP TOP
[2025-03-06 21:15] LABS: Albumin, Blood 3.6 g/dL (3.4-5.0); Albumin/Globulin Ratio 1.1 (0.8-1.8); Bilirubin, Total 0.1 mg/dL (0.1-1.0); Bun/Creatinine Ratio 19.5 (12.0-20.0); Creatinine, Blood 0.87 mg/dL (0.40-1.00); Globulin, Blood 3.3 g/dL (2.2-4.0); Potassium, Blood 3.8 mmol/L (3.5-5.5); Total Protein, Blood 6.9 g/dL (6.4-8.2)
[2025-03-06 21:27] LABS: BASOPHILS ABSOLUTE AUTO 0.06 K/mm3 (0.00-0.23); BASOPHILS PERCENT AUTO 1 % (0-2); EOSINOPHILS ABSOLUTE AUTO 0.02 K/mm3 (0.00-0.68); EOSINOPHILS PERCENT AUTO 0 % (0-6); Hematocrit 39.3 % (33.0-51.0); Hemoglobin 13.2 g/dL (11.5-16.0); IMMATURE GRAN ABSOLUTE AUTO 0.03 K/mm3 (0.00-0.10); IMMATURE GRAN PERCENT AUTO 0 % (0-1); LYMPHOCYTES ABSOLUTE AUTO 2.97 K/mm3 (0.84-5.20); LYMPHOCYTES PERCENT AUTO 35 % (21-46); MONOCYTES ABSOLUTE AUTO 0.78 K/mm3 (0.16-1.47); MONOCYTES PERCENT AUTO 9 % (4-13); Mean Corpuscular HGB Conc 33.6 g/dL (31.5-36.5); Mean Corpuscular Volume 89 fL (80-100); NEUTROPHILS ABSOLUTE AUTO 4.56 K/mm3 (1.96-9.15); NEUTROPHILS PERCENT AUTO 54 % (41-73); Platelet Count 228 K/mm3 (150-400); RDW Coefficient Variation 14.6 % (11.7-14.2); RDW Standard Deviation 47.8 fL (35.1-46.3); White Blood Cell Count 8.42 K/mm3 (4.00-11.30)
[2025-03-07] VITALS: BP 148/85
== END 2025-03-07 00:02 | disposition home or self-care (01) ==
LOC: ER 20:17
PROVIDERS: Student in an Organized Health Care Education/Training Program
DX: R07.9 Chest pain, unspecified (principal); I10 Essential (primary) hypertension; Z87.891 Personal history of nicotine dependence; Z79.899 Other long term (current) drug therapy; Z91.013 Allergy to seafood; Z88.6 Allergy status to analgesic agent; Z88.5 Allergy status to narcotic agent; Z88.8 Allergy status to other drugs, medicaments and biological substances
CPT/HCPCS: 71045; 80053; 84484; 85025; 93005; 93010; 99285-25

== ENCOUNTER → 2025-04-09 | Outpatient (CLI) | payer OTHER ==
[~2025-04-09] MED LIST changes: +Atarax10 MG PO
[2025-04-11 04:44] LABS: ANTI-NUCLEAR AB ANA,IGG ELISA Detected (None Detected)
[2025-04-11 18:01] LABS: COMPLEMENT COMPONENT 3 99 mg/dL (90-180); COMPLEMENT COMPONENT 4 12 mg/dL (10-40)
[2025-04-11 20:45] LABS: ANA PATTERN Speckled; ANTINUCLEAR AB (ANA),HEP-2,IGG Detected (<1:80)
[2025-04-12 14:13] LABS: SMITH/RNP (ENA) AB, IGG 4 Units (0-19)
[2025-04-12 20:19] LABS: JO-1 HISTIDYL-TRNA SYNTHET,IGG 3 AU/mL (0-40); SCLERODERMA (SCL-70) AB,IGG 2 AU/mL (0-40); SMITH (ENA) ANTIBODY, IGG 3 AU/mL (0-40); SSA-52 (RO52) (ENA) AB, IGG 1 AU/mL (0-40); SSA-60 (RO60) (ENA) AB, IGG 1 AU/mL (0-40); SSB (LA) (ENA) ANTIBODY, IGG 0 AU/mL (0-40)
[2025-04-13 14:00] LABS: DOUBLE-STRANDED DNA IGG ELISA 6 IU (0-24)
== END ==
LOC: LAB 11:43 → LAB SHORT 11:43
PROVIDERS: Student in an Organized Health Care Education/Training Program
DX: M32.8 Other forms of systemic lupus erythematosus (principal)
CPT/HCPCS: 85651; 86038; 86039; 86160; 86225; 86235